=== PATIENT | female | born 1960 | race Caucasian/White ===

== ENCOUNTER 2018-01-16 21:15 | Emergency (ER) | payer OTHER ==
[~2018-01-16] VITALS: Ht 28086.8 cm; Wt 68.1 kg
[2018-01-16 21:39] LABS: BASOPHILS % (AUTO) 0.7 % (0-1); EOSINOPHILS % (AUTO) 0.1 % (0-6); HEMATOCRIT 37.2 % (35.0-45.0); HEMOGLOBIN 13.1 g/dl (12.0-16.0); LYMPHOCYTES % (AUTO) 14.9 % (21-51); MEAN CORPUSCULAR HEMOGLOBIN 37.2 PG (27.0-31.0); MEAN CORPUSCULAR HGB CONC 35.1 % (33.0-36.5); MEAN CORPUSCULAR VOLUME 105.8 FL (78-98); MONOCYTES # (AUTO) 0.5 X10'3 (0-0.9); MONOCYTES % (AUTO) 8.1 % (2-12); NEUTROPHILS # (AUTO) 5.1 X10'3 (1.8-7.7); NEUTROPHILS % (AUTO) 76.2 % (42-75); PLATELET COUNT 136 X10'3 (140-440); RED BLOOD COUNT 3.52 X10'6 (4.20-5.60); RED CELL DISTRIBUTION WIDTH 12.9 % (11.5-14.5); WHITE BLOOD COUNT 6.7 X10'3 (4.5-11.0)
[2018-01-16 21:53] LABS: ALANINE AMINOTRANSFERASE 71 U/L (12-78); ALBUMIN 3.8 G/DL (3.4-5.0); ALBUMIN/GLOBULIN RATIO 0.8 (1.1-1.5); ALKALINE PHOSPHATASE 176 IU/L (46-116); ANION GAP 15 (8-16); ASPARTATE AMINO TRANSFERASE 138 U/L (10-37); BILIRUBIN,TOTAL 1.5 MG/DL (0.1-1.0); BLOOD UREA NITROGEN 11 MG/DL (7-18); BUN/CREATININE RATIO 6.3 (6.6-38.0); CALCIUM 8.9 MG/DL (8.5-10.1); CHLORIDE 95 MMOL/L (99-107); CREATININE 1.74 MG/DL (0.40-0.90); GLUCOSE 111 MG/DL (70-104); POTASSIUM 3.1 MMOL/L (3.5-5.1); SODIUM 134 MMOL/L (135-145); TOTAL CARBON DIOXIDE 24.5 MMOL/L (24-32); TOTAL PROTEIN 8.5 G/DL (6.4-8.2); eGFR 30 ML/MIN
[2018-01-16 22:02] LABS: ETHANOL 0.181 GM/DL (0.0-0.010)
[2018-01-16 22:29] LABS: CLARITY,URINE CLEAR (Clear); COLOR,URINE YELLOW (Yellow); GLUCOSE, URINE NEGATIVE (Neg); KETONES,URINE TRACE mg/dl (Neg); LEUKOCYTE ESTERASE ,URINE TRACE (Neg); NITRITES, URINE NEGATIVE (Neg); OCCULT BLOOD,URINE TRACE-LYSED (Neg); PH,URINE 5.5 (4.8-8.0); PROTEIN,URINE 30 mg/dl (Neg); UROBILINOGEN,URINE 0.2 E.U/dL (0.2-1.0)
[2018-01-16 22:30] LABS: URINE HCG NEGATIVE (NEG)
[2018-01-16 22:32] LABS: UA COLLECTION TYPE NON-SPECIFIED
[2018-01-16 22:37] LABS: BACTERIA,URINE 2+ /HPF (Neg); MUCUS STRANDS MODERATE /LPF (Neg); RBC,URINE 0-2 /HPF (0-2); SQUAMOUS EPITHELIAL CELL,UR MANY /LPF (FEW)
[2018-01-16 22:40] LABS: URINE AMPHETAMINE SCREEN POSITIVE (Neg); URINE BARBITUATE SCREEN NEGATIVE (Neg); URINE BENZODIAZEPINES SCREEN NEGATIVE (Neg); URINE CANNABINOID SCREEN NEGATIVE (Neg); URINE COCAINE SCREEN NEGATIVE (Neg); URINE METHADONE SCREEN NEGATIVE (Neg); URINE OPIATE SCREEN NEGATIVE (Neg); URINE PHENCYCLIDINE SCREEN NEGATIVE (Neg)
[2018-01-17] MEDS ORDERED: ziprasidone 20mg capsule PO PRN (01:05)
[2018-01-17] MEDS ORDERED: ziprasidone IM 20mg inj **IM only IM PRN (01:05)
[2018-01-17] MEDS ORDERED: LORazepam 2 mg/ml vial IM PRN (01:05)
[2018-01-17] MEDS ORDERED: acetaminophen 325mg tablet PO ONE ×2 (02:35→12:20)
[2018-01-17] MEDS: LORazepam 1 MG tablet PO PRN ×2 (02:40→11:38)
[2018-01-17] MEDS: ciprofloxacin 250mg tablet PO SCH ×2 (08:20→20:20)
[2018-01-17] MEDS: potassium Cl 20 mEq SR tablet PO SCH (08:21)
[2018-01-18] MEDS: potassium Cl 20 mEq SR tablet PO SCH (08:35)
[2018-01-18] MEDS: ciprofloxacin 250mg tablet PO SCH ×2 (08:35→20:40)
[2018-01-18] MEDS: acetaminophen 325mg tablet PO PRN ×2 (10:40→20:40)
[2018-01-18] MEDS: lactobacillus rhamnosus 10,000 MMU CELLS/CAPSULE PO SCH (20:40)
[2018-01-19] MEDS: LORazepam 1 MG tablet PO PRN (08:17)
[2018-01-19] MEDS: potassium Cl 20 mEq SR tablet PO SCH (08:17)
[2018-01-19] MEDS: ciprofloxacin 250mg tablet PO SCH ×2 (08:17→20:47)
[2018-01-19] MEDS: lactobacillus rhamnosus 10,000 MMU CELLS/CAPSULE PO SCH ×2 (08:17→20:47)
[2018-01-19 10:58] LABS: POTASSIUM 4.6 MMOL/L (3.5-5.1)
[2018-01-20] MEDS: acetaminophen 325mg tablet PO PRN (03:31)
[2018-01-20] MEDS: lactobacillus rhamnosus 10,000 MMU CELLS/CAPSULE PO SCH ×2 (08:54→20:22)
[2018-01-20] MEDS: potassium Cl 20 mEq SR tablet PO SCH (08:54)
[2018-01-20] MEDS: ciprofloxacin 250mg tablet PO SCH ×2 (08:54→20:22)
[2018-01-20] MEDS: LORazepam 1 MG tablet PO PRN (08:54)
[2018-01-20] MEDS: allopurinol 100mg tablet PO SCH (14:15)
[2018-01-21] MEDS: lactobacillus rhamnosus 10,000 MMU CELLS/CAPSULE PO SCH ×2 (11:07→20:07)
[2018-01-21] MEDS: potassium Cl 20 mEq SR tablet PO SCH (11:07)
[2018-01-21] MEDS: ciprofloxacin 250mg tablet PO SCH ×2 (11:07→20:07)
[2018-01-21] MEDS: allopurinol 100mg tablet PO SCH (11:09)
[2018-01-22] MEDS: potassium Cl 20 mEq SR tablet PO SCH (08:00)
[2018-01-22] MEDS: lactobacillus rhamnosus 10,000 MMU CELLS/CAPSULE PO SCH (08:10)
[2018-01-22] MEDS: ciprofloxacin 250mg tablet PO SCH (08:10)
[2018-01-22] MEDS: allopurinol 100mg tablet PO SCH (08:10)
[2018-01-22 14:39] VITALS: BP 147/91
== END 2018-01-22 14:44 | disposition home or self-care (01) ==
LOC: ER 21:16
DX: E87.6 Hypokalemia (principal); F29 Unspecified psychosis not due to a substance or known physiological condition; N39.0 Urinary tract infection, site not specified; K70.9 Alcoholic liver disease, unspecified; M10.9 Gout, unspecified; Z88.8 Allergy status to other drugs, medicaments and biological substances
CPT/HCPCS: 36415; 80053; 80305; 80320; 81001; 81025; 84132; 84443; 85025; 96372; 99285